=== PATIENT | female | born 1970 | race Two or more races ===

== ENCOUNTER 2019-09-04 17:24 | Emergency (ER) | payer BC ==
[~2019-09-04 17:24] MED LIST: SUCCINYLCHOLINE CHLORIDE INJ 200 MG/10 ML VIAL IV ONE
--- NOTE | 2019-09-04 17:44 | ER Document Report ---
ED Seizure - General Chief Complaint: Seizure Stated Complaint: SEIZURE Time Seen by Provider: 09/04/19 17:27 Mode of Arrival: Medic Information source: Emergency Med Personnel Cannot obtain history due to: Intubated Notes: Patient is a 42-year-old female presenting with apparent new onset seizure activity. called EMS reporting that the patient was lying in the floor at home having generalized shaking which he felt to be a probable seizure. Patient has never had previous seizures. No trauma reported. Prior history of MS. Not currently on treatment for this condition. Also has history of hypertension. EMS crew found the patient awake alert and talking when they arrived on scene. She had what appeared to be another generalized seizure. They administered IM Versed and subsequently Ativan IV. They also administered IV domain and attempted on orotracheal intubation without success. Subsequently placed a Igel. Blood sugar was 82 by fingerstick per EMS. Additional history unable to be obtained due to patient's intubated status. - HPI Patient complains to provider of: First seizure - Additional hx. from mother: pt. has hx. of EtOH abuse. - Related Data Allergies/Adverse Reactions: No Allergy Information Available Allergy (Verified 09/04/19 20:02) Past Medical History - General Cannot obtain history due to: Intubated - Social History Smoking Status: Unknown if Ever Smoked Family History: Reviewed & Not Pertinent Review of Systems - Review of Systems -: Yes ROS unobtainable due to patient's medical condition Physical Exam - Vital signs Vitals: Resp Pulse Ox 17 96 09/04/19 17:27 09/04/19 17:27 Notes: GENERAL: Middle-aged female presents with iigel tube in situ being bagged by EMS personnel.. Patient is currently unresponsive. SKIN: Good turgor. Telangiectasias and petechiae noted over facial area. Skin is pale and cool. HEAD: Normocephalic atraumatic. EYES: PERRLA. Conjunctivae and sclerae clear. EARS: CANALS AND TMS CLEAR. NOSE: CLEAR. MOUTH: Moist mucosa. Good dentition. NECK: Supple. No masses or thyromegaly. No adenopathy. Carotids 2+ without bruits. No JVD. CHEST: Patient is currently being bagged. Breath sounds clear and symmetrical. HEART: Tachycardic with regular rhythm. No murmur gallop or rub. ABDOMEN: Soft nontender without masses, organomegaly or rebound. Bowel sounds normally active. No bruits. GENITALIA: Normal female EXTREMITIES: No edema. No calf tenderness. Cap refill less than 3.0 seconds. Dorsalis pedis and posterior tibial pulses 3+ and symmetrical. NEUROLOGICAL: GCS 3T. No spontaneous movements. Course - Re-evaluation Re-evalutation: 09/04/19 18:48 ICU admission here was declined by Dr. Hou as it was not no local neurology coverage. Situation was discussed with the family and they request treatment to be transferred to [facility] in [facility]. I have spoken with the on-call success coach they are Dr. Pino who has accepted the patient for transfer. - Vital Signs Vital signs: Temp Pulse Resp BP Pulse Ox 100.4 F 123 H 24 H 113/89 H 100 09/04/19 21:32 09/04/19 21:32 09/04/19 21:32 09/04/19 21:32 09/04/19 21:32 - Laboratory Result Diagrams: 09/04/19 17:38 09/04/19 17:38 Laboratory results interpreted by me: 09/04/19 09/04/19 09/04/19 17:32 17:38 17:38 RDW 15.4 H Plt Count 149 L Seg Neuts % (Manual) 91 H Lymphocytes % (Manual) 5 L Abs Lymphs (Manual) 0.4 L Carbonic Acid ABG pCO2 ABG pO2 ABG O2 Saturation Chloride 108 H Carbon Dioxide 19 L BUN 6 L Glucose 163 H POC Glucose 158 H AST 120 H Urine Protein Urine Glucose (UA) Urine Ketones Urine Blood 09/04/19 09/04/19 17:38 21:00 RDW Plt Count Seg Neuts % (Manual) Lymphocytes % (Manual) Abs Lymphs (Manual) Carbonic Acid 0.97 L ABG pCO2 32.2 L ABG pO2 62.3 L ABG O2 Saturation 92.6 L Chloride Carbon Dioxide BUN Glucose POC Glucose AST Urine Protein >=500 H Urine Glucose (UA) 50 H Urine Ketones TRACE H Urine Blood MODERATE H Procedures - Intubation Orotracheal Airway evaluation: Normal anatomy Mallampati Classification: Class 2 Medications: Etomidate, Succinylcholine Intubation method: Orotracheal Blade type: Jamia, Other Blade size: 3 Equipment used: Glidescope ETT size: 7.5 ETT secured at: Teeth ETT secured at (cm): 22 Breath Sounds after Intubation: Equal End tidal CO2 confirmed: Yes Ventilator settings: SIMV Critical Care Note - Critical Care Note Total time excluding time spent on procedures (mins): 75 Discharge - Discharge Clinical Impression: Status epilepticus Condition: Critical Disposition: [facility]
[2019-09-04] MEDS ORDERED: ETOMIDATE INJ/PF 20 MG/10 ML SDV IV ONE (17:46)
[2019-09-04] MEDS ORDERED: PROPOFOL 1,000 MG/100 ML INFUS..BTL IV ONE (17:47)
--- NOTE | 2019-09-04 17:53 | RADIOLOGY REPORT (SQ) ---
EXAM DESCRIPTION: CHEST SINGLE VIEW COMPLETED DATE/TIME: 09/04/2019 5:35 pm REASON FOR STUDY: ETT AND NG TUBE PLACEMENT COMPARISON: None. EXAM PARAMETERS: NUMBER OF VIEWS: One view. TECHNIQUE: Single frontal radiographic view of the chest acquired. RADIATION DOSE: NA LIMITATIONS: None. FINDINGS: LUNGS AND PLEURA: Left lower lobe collapse. No pneumothorax or pleural effusion. MEDIASTINUM AND HILAR STRUCTURES: No masses. Contour normal. HEART AND VASCULAR STRUCTURES: Heart normal in size. Normal vasculature. BONES: No acute findings. HARDWARE: Endotracheal tube projecting over the central airway with the tip terminating at the level of the proximal right mainstem bronchus origin. Enteric tube demonstrating a subdiaphragmatic course with the tip projecting over the left upper abdomen over the expected region of the stomach. OTHER: No other significant finding. IMPRESSION: Right mainstem bronchus intubation and left lower lobe collapse. Recommend retraction b y at least 3 cm. TECHNICAL DOCUMENTATION: JOB ID: [id number] [employer]- All Rights Reserved Reading location - IP/workstation name: [email or web address]
[2019-09-04 17:57] LABS: HEMATOCRIT 46.1 % (36.0-47.0); HEMOGLOBIN 15.4 g/dL (12.0-15.5); MEAN CORPUSCULAR HEMOGLOBIN 32.3 pg (27.0-33.4); MEAN CORPUSCULAR HGB CONC 33.4 g/dL (32.0-36.0); MEAN CORPUSCULAR VOLUME 97 fl (80-97); PLATELET COUNT 149 10^3/uL (150-450); RED BLOOD COUNT 4.77 10^6/uL (3.72-5.28); RED CELL DISTRIBUTION WIDTH 15.4 % (11.5-14.0); WHITE BLOOD COUNT 7.1 10^3/uL (4.0-10.5)
[2019-09-04] MEDS ORDERED: LEVETIRACETAM 1000 MG/NACL-ISO 1,000 MG/100 ML RTUPB IV ONE ×2 (18:08→20:52)
[2019-09-04 18:14] LABS: ABSOLUTE LYMPHOCYTES# (MANUAL) 0.4 10^3/uL (0.5-4.7); ABSOLUTE MONOCYTES # (MANUAL) 0.2 10^3/uL (0.1-1.4); BASOPHILS % (MANUAL) 1 % (0-2); EOSINOPHILS % (MANUAL) 0 % (0-6); LYMPHOCYTES % (MANUAL) 5 % (13-45); MONOCYTES % (MANUAL) 3 % (3-13); SEGMENTED NEUTROPHILS % (MAN) 91 % (42-78); TOTAL CELLS COUNTED 100
[2019-09-04 18:16] LABS: ANISOCYTOSIS SLIGHT; PLATELET COMMENT DECREASED; SMUDGE CELLS PRESENT
[2019-09-04 18:18] LABS: APPEARANCE,URINE SLIGHTLY-CLOUDY; BILIRUBIN,URINE NEGATIVE (NEGATIVE); COLOR,URINE YELLOW; GLUCOSE, URINE 50 mg/dL (NEGATIVE); KETONES,URINE TRACE mg/dL (NEGATIVE); LEUKOCYTE ESTERASE,URINE NEGATIVE (NEGATIVE); NITRITE,URINE NEGATIVE (NEGATIVE); PROTEIN,URINE >=500 mg/dL (NEGATIVE); URINE SPECIFIC GRAVITY 1.017; UROBILINOGEN,URINE NEGATIVE mg/dL (<2.0)
[2019-09-04 18:20] LABS: ADD MANUAL MICROSCOPIC YES; ALBUMIN 4.5 g/dL (3.5-5.0); ALKALINE PHOSPHATASE 48 U/L (38-126); ANION GAP 18 (5-19); ASPARTATE AMINO TRANSFERASE 120 U/L (14-36); BILIRUBIN,DIRECT 0.3 mg/dL (0.0-0.4); BILIRUBIN,TOTAL 0.8 mg/dL (0.2-1.3); BLOOD UREA NITROGEN 6 mg/dL (7-20); CALCIUM 9.5 mg/dL (8.4-10.2); CARBON DIOXIDE 19 mmol/L (22-30); CHLORIDE 108 mmol/L (98-107); CREATINE KINASE 63 U/L (30-135); GLUCOSE 163 mg/dL (75-110); POTASSIUM 4.7 mmol/L (3.6-5.0); TOTAL PROTEIN 7.5 g/dL (6.3-8.2)
--- NOTE | 2019-09-04 18:24 | RADIOLOGY REPORT (SQ) ---
EXAM DESCRIPTION: CT HEAD WITHOUT COMPLETED DATE/TIME: 09/04/2019 6:08 pm REASON FOR STUDY: seizure COMPARISON: None. TECHNIQUE: Axial images acquired through the brain without intravenous contrast. Images reviewed wi th bone, brain and subdural windows. Additional sagittal and coronal reconstructions were generated. Images stored on PACS. All CT scanners at this facility use dose modulation, iterative reconstruction, and/or weight based d osing when appropriate to reduce radiation dose to as low as reasonably achievable (ALARA). [facility]: Dose Right [facility]: CareDose [facility]: Dose Right [facility]: Teradose 4D [facility]: [employer] RADIATION DOSE: CT Rad equipment meets quality standard of care and radiation dose reduction techniq ues were employed. CTDIvol: 53.2 mGy. DLP: 1017 mGy-cm. mGy. LIMITATIONS: None. FINDINGS: VENTRICLES: Normal size and contour. CEREBRUM: No masses. No hemorrhage. No midline shift. No evidence for acute infarction. Normal gra y/white matter differentiation. No areas of low density in the white matter. CEREBELLUM: No masses. No hemorrhage. No alteration of density. No evidence for acute infarction. EXTRAAXIAL SPACES: No fluid collections. No masses. ORBITS AND GLOBE: No intra- or extraconal masses. Normal contour of globe without masses. CALVARIUM: No fracture. PARANASAL SINUSES: No fluid or mucosal thickening. SOFT TISSUES: No mass or hematoma. OTHER: Partially visualized endotracheal tube within the oral cavity. IMPRESSION: NO ACUTE INTRACRANIAL IMAGING FINDINGS. EVIDENCE OF ACUTE STROKE: NO. COMMENT: Quality ID # [id number]: Final reports with documentation of one or more dose reduction techniques (e.g., Automated exposure control, adjustment of the mA and/or kV according to patient size, use of iterative reconstruction technique) TECHNICAL DOCUMENTATION: JOB ID: [id number] [employer]- All Rights Reserved Reading location - IP/workstation name: [email or web address]
--- NOTE | 2019-09-04 18:27 | RADIOLOGY REPORT (SQ) ---
EXAM DESCRIPTION: CT CERVICAL SPINE WITHOUT COMPLETED DATE/TIME: 09/04/2019 6:08 pm REASON FOR STUDY: seizure COMPARISON: None. TECHNIQUE: Axial images acquired through the cervical spine without intravenous contrast. Images re viewed with lung, soft tissue and bone windows. Reconstructed coronal and sagittal MPR images review ed. Images stored on PACS. All CT scanners at this facility use dose modulation, iterative reconstruction, and/or weight based d osing when appropriate to reduce radiation dose to as low as reasonably achievable (ALARA). [facility]: Dose Right [facility]: CareDose [facility]: Dose Right [facility]: Teradose 4D [facility]: [employer] RADIATION DOSE: CT Rad equipment meets quality standard of care and radiation dose reduction techniq ues were employed. CTDIvol: 17.0 mGy. DLP: 416 mGy-cm. mGy. LIMITATIONS: None. FINDINGS: ALIGNMENT: Anatomic. MINERALIZATION: Normal. VERTEBRAL BODIES: No fractures or dislocation. DISCS: C5-6 degenerative disc disease. FACETS, LATERAL MASSES, POSTERIOR ELEMENTS: No fractures. No dislocation. No acute findings. HARDWARE: Partially visualized endotracheal and enteric tubes. VISUALIZED RIBS: No fractures. LUNG APICES AND SOFT TISSUES: No significant or acute findings. OTHER: No other significant finding. IMPRESSION: NO ACUTE OR SIGNIFICANT FINDINGS IN THE CERVICAL SPINE. TECHNICAL DOCUMENTATION: JOB ID: [id number] Quality ID # [id number]: Final reports with documentation of one or more dose reduction techniques (e.g., Au tomated exposure control, adjustment of the mA and/or kV according to patient size, use of iterative reconstruction technique) 2010 [employer] All Rights Reserved Reading location - IP/workstation name: [email or web address]
[2019-09-04 18:28] LABS: ALCOHOL < 10 mg/dL (NONE DETECTED)
[2019-09-04] MEDS ORDERED: VANCOMYCIN HCL INJ 1000 MG VIAL IV ONE (18:31)
[2019-09-04] MEDS ORDERED: ACYCLOVIR SODIUM INJ/PF 500 MG/10 ML SDV IV ONE (18:32)
[2019-09-04 18:33] LABS: URINE AMPHETAMINES SCREEN NEGATIVE; URINE BARBITURATES SCREEN NEGATIVE; URINE BENZODIAZEPINES SCREEN UNCONFIRMED POSITIVE; URINE COCAINE SCREEN NEGATIVE; URINE MARIJUANA (THC) SCREEN NEGATIVE; URINE METHADONE SCREEN NEGATIVE; URINE PHENCYCLIDINE SCREEN NEGATIVE
[2019-09-04 18:46] LABS: INTERNATIONAL RATION (INR) 1.08
[2019-09-04] MEDS ORDERED: CEFTRIAXONE 1 GM/D5W RTU 1 GM/50 ML RTUPB IV ONE (19:00)
[2019-09-04] MEDS ORDERED: PROPOFOL INJ 200 MG/20 ML VIAL IV ONE (20:04)
[2019-09-04] MEDS ORDERED: PROPOFOL 1,000 MG/100 ML INFUS..BTL IV PRN (20:06)
--- NOTE | 2019-09-04 20:34 | RADIOLOGY REPORT (SQ) ---
EXAM DESCRIPTION: XR CHEST 1 VIEW COMPLETED DATE/TME: 09/04/2019 7:36 PM CLINICAL HISTORY: tube placement COMPARISON: Same day earlier time FINDINGS: The endotracheal tube ends approximately 4.8 cm above the level of the shantell. There is a NG tube which courses subdiaphragmatically ending at the level of the stomach. There is elevation of the left hemidiaphragm. Linear opacity at the left lower lung may represent scar versus subsegmental atelectasis. Cardiac silhouette is within normal limits. IMPRESSION: Linear opacity at the left lower lung may represent scar versus subsegmental atelectasis. Elevated left hemidiaphragm, unchanged.
[2019-09-04 21:13] LABS: ARTERIAL BLOOD BASE EXCESS -2.9 mmol/L; ARTERIAL BLOOD H2CO3 0.97 mmol/L (1.05-1.35); ARTERIAL BLOOD HCO3 20.6 mmol/L (20-24); ARTERIAL BLOOD O2 SATURATION 92.6 % (94-98); ARTERIAL BLOOD PCO2 32.2 mmHg (35-45); ARTERIAL BLOOD PH 7.42 (7.35-7.45); ARTERIAL BLOOD PO2 62.3 mmHg (80-100); ARTERIAL BLOOD TOTAL CO2 21.5 mmol/L (21-25)
[2019-09-04 21:17] LABS: ARTERIAL BLOOD FIO2 80%
[2019-09-04] MEDS ORDERED: ACETAMINOPHEN 325 MG SUPP.RECT PR ONE (21:26)
[2019-09-04] MEDS ORDERED: NORMAL SALINE 1000 ML 1,000 ML IV ONE (21:27)
[2019-09-04 21:33] VITALS: BP 113/89
--- NOTE | 2019-09-04 21:43 | EKG REPORT ---
SEVERITY:- BORDERLINE ECG - SINUS TACHYCARDIA MILD DIFFUSE NONSPECIFIC ST-T CHANGES : Confirmed by: Thomas Garza MD 04-Sep-2019 21:42:16
== END 2019-09-04 21:45 | disposition short-term general hospital (02) ==
LOC: ER 17:24 → EDBD 17:24 → ER 21:45
DX: G40.901 Epilepsy, unspecified, not intractable, with status epilepticus (principal)
CPT/HCPCS: 93005; 36415; 87040; 82962; 80307 ×2; 82803; 82550; 85025; 85610; 81025; 80053; 81001; 71045; 70450; 72125; 94660; 93010; 36600; 31500; J3490 ×2; J0133; J2704; J7030; J0330; J3370; J0696; J1953

== ENCOUNTER → 2020-04-13 | Outpatient (CLI) | payer BC | LOC: OD 14:15 | PROVIDERS: ATTEND Psychiatry & Neurology Neurology | DX: G37.9 Demyelinating disease of central nervous system, unspecified (principal); R29.898 Other symptoms and signs involving the musculoskeletal system; D89.9 Disorder involving the immune mechanism, unspecified ==

== ENCOUNTER → 2020-04-13 | Outpatient (CLI) | payer BC | LOC: WI 13:39 | PROVIDERS: ATTEND Physician Assistant | DX: Z12.31 Encounter for screening mammogram for malignant neoplasm of breast (principal) | CPT/HCPCS: 77063; 77067 ==